=== PATIENT | male | born 1970 | race Caucasian/White ===

== ENCOUNTER 2020-08-30 18:16 | Emergency (ER) | payer MEDICARE, SELFPAY ==
[2020-08-30 18:34] VITALS: BP 120/79; PULSE 79; RESP 20; TEMP 37.3; O2SAT 97
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
[2020-08-30 19:19] LABS: Abs Immature Grans 0.04 10^3/uL (0.0-0.06); Absolute Basophil Count 0.04 10^3/uL (0.0-0.2); Absolute Eosinophil Count 0.12 10^3/uL (0.0-0.7); Absolute Lymphocyte Count 2.18 10^3/uL (1.2-3.4); Absolute Monocyte Count 0.68 10^3/uL (0.1-0.8); Absolute Neutrophil Count 7.74 10^3/uL (1.2-6.7); Basophils % 0.4; Eosinophils % 1.1; HCT 42.4 % (40.0-50.0); HGB 15.1 g/dL (13.5-17.5); Immature Grans % 0.4; Lymphocytes % 20.2; MCH 29.8 pg (27.0-33.0); MCHC 35.6 % (32.0-36.0); MCV 83.8 fL (80-95); MPV 11.4 fL (8.0-11.0); Monocytes % 6.3; Neutrophils % 71.6; Nucleated RBC 0 %; Platelet Count 170 10^3/uL (130-400); RBC 5.06 10^6/uL (4.36-5.78); RDW 12.5 % (11.8-14.1)
[2020-08-30] MEDS: Normal Saline Flush 10 ML SYR IVP (19:19)
[2020-08-30] MEDS: HYDROmorphone 2 MG/ML VIAL 0.5 MG IVP (19:20)
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
[2020-08-30 19:46] LABS: ALT 38 U/L (16-63); AST 14 U/L (15-37); Albumin 3.8 g/dL (3.4-5.0); Alkaline Phosphatase 65 U/L (46-116); Anion Gap 11.9 mmol/L (3-11); BUN 23 mg/dL (7-18); Bilirubin, Total 0.5 mg/dL (0.2-1.0); CO2 26.1 mmol/L (21.0-32.0); CREATININE 1.2 mg/dL (0.70-1.30); Calcium 8.9 mg/dL (8.5-10.1); Chloride 95 mmol/L (98-107); Glucose 492 mg/dL (74-106); Potassium 4.4 mmol/L (3.5-5.1); Sodium 133 mmol/L (136-145); Total Protein 7.7 g/dL (6.4-8.2)
[2020-08-30] MEDS: Omnipaque 350 MG/ML 100 ML BTL IV (19:51)
[2020-08-30] MEDS: Normal Saline - Diluent 50 ML VIAL IV (19:52)
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
--- NOTE | 2020-08-30 20:45 | RT.EKG_ITS ---
APPROVED REPORT Exam: Resting ECG Patient Location: E HR:71 bpm ECG Measurements Heart Rate 71 AXIS AZ 194 P 20 QRSd 94 QRS 18 QT 397 T 1 QTc 431 Conclusion Sinus rhythm...normal P axis, V-rate 60- 99
[2020-08-30] MEDS: Lactated Ringers 1,000 ML 1000 ML IV (21:00)
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
[2020-08-30 23:10] LABS: Anion Gap 9.5 mmol/L (3-11); BUN 21 mg/dL (7-18); CO2 25.5 mmol/L (21.0-32.0); CREATININE 0.9 mg/dL (0.70-1.30); Calcium 8.7 mg/dL (8.5-10.1); Chloride 97 mmol/L (98-107); Glucose 392 mg/dL (74-106); Potassium 4.3 mmol/L (3.5-5.1); Sodium 132 mmol/L (136-145)
[2020-08-30] MEDS: Insulin NPH-Human 300 UNITS/3 ML PEN 50 UNIT SC (23:29)
[2020-08-30 23:33] VITALS: BP 120/79; PULSE 79; RESP 20; TEMP 37.3; O2SAT 97
== END 2020-08-30 23:34 | disposition home or self-care (01) ==
PROVIDERS: Emergency Provider Student in an Organized Health Care Education/Training Program; PCP Family Medicine
DX: S20.212A Contusion of left front wall of thorax, initial encounter (principal); M25.512 Pain in left shoulder; S70.11XA Contusion of right thigh, initial encounter; V43.52XA Car driver injured in collision with other type car in traffic accident, initial encounter; E11.65 Type 2 diabetes mellitus with hyperglycemia; Z79.4 Long term (current) use of insulin
CPT/HCPCS: 36415; 36416; 74177; 80048; 80053; 82962; 86850; 86900; 86901; 93005; 96361; 96372; 96374; 99285; 71260; 73000; 85025; 93010; J3490